=== PATIENT | female | born 1940 | race Caucasian/White ===

== ENCOUNTER 2020-09-09 11:22 | Inpatient (IN) | payer MEDICARE, BC ==
[~2020-09-09] VITALS: Ht 162.6 cm; Wt 59.9 kg
[2020-09-09 11:30] VITALS: BP 155/67
[2020-09-09] MEDS ORDERED: FENO160T8 PO (11:53)
[2020-09-09] MEDS ORDERED: METF-371 PO ×2 (11:53→12:03)
[2020-09-09] MEDS ORDERED: GLIP10TA9 PO ×3 (11:53→14:30)
[2020-09-09] MEDS ORDERED: FENO200C22 PO (12:03)
[2020-09-09] MEDS ORDERED: CLO01T PO (12:03)
[2020-09-09] MEDS ORDERED: METO-169 PO (12:03)
[2020-09-09] MEDS ORDERED: ASPI-543 PO (12:03)
[2020-09-09] MEDS ORDERED: TRAZ50TA2 PO (12:03)
[2020-09-09] MEDS ORDERED: LABETALOL HCL 5 MG/ML 4ML SYRINGE IV PRN (12:15)
[2020-09-09] MEDS ORDERED: MORPHINE SULF INJ 2 MG/ML SYRINGE 1ML IV PRN (12:15)
[2020-09-09] MEDS ORDERED: PANTOPRAZOLE 40 MG/10 ML VIAL INJ IV ONE (12:15)
[2020-09-09] MEDS ORDERED: DEXTROSE (50%) 50ML SYRG IV PRN (12:15)
[2020-09-09] MEDS ORDERED: NITROGLYCERIN 0.4 MG SL TAB SL PRN (12:15)
--- NOTE | 2020-09-09 12:53 | NUR ---
PATIENT BEING WHEELED DOWN FOR HIDA SCAN.
[2020-09-09 13:00] VITALS: BP 155/64
[2020-09-09 17:00] VITALS: BP 143/74
[2020-09-09 17:51] LABS: Basophils # (auto) 0.1 10 ^3/uL (0-0.2); Eosinophils # (auto) 0.2 10 ^3/uL (0-0.8); Monocytes # (auto) 0.5 10 ^3/uL (0-1.3)
[2020-09-09 17:52] LABS: Eosinophils % (auto) 2.7 % (0.0-7.0); Hematocrit 34.8 % (36.0-46.0); Hemoglobin 11.1 g/dL (12.2-16.2); Lymphocytes # (auto) 1.4 10 ^3/uL (0.4-5.4); Lymphocytes % (auto) 24.7 % (10.0-50.0); Mean Corpuscular Hemoglobin 25.5 pg (28.0-32.0); Mean Corpuscular Hgb Conc. 31.9 g/dL (32.0-36.0); Mean Corpuscular Volume 79.9 fL (80.0-100.0); Monocytes % (auto) 8.6 % (0.0-12.0); Neutrophils # (auto) 3.6 10 ^3/uL (1.6-8.6); Platelet Count (auto) 342 10^3/uL (140-450); Red Blood Cells 4.35 10^6/uL (4.0-5.20); White Blood Cell 5.8 10^3/uL (4.4-10.8)
[2020-09-09 18:00] LABS: INR 1.06 (0.9-1.15); Partial Thromboplastin Time 26.6 sec (23.0-31.2)
[2020-09-09] MEDS: InsuLIN REG 1unit/0.01ml Soln (100units/ml) SC SCH (18:00)
[2020-09-09 18:03] LABS: Albumin 3.7 g/dL (3.4-5.0); Calcium 9.7 mg/dL (8.5-10.1); Potassium 4.2 mmol/L (3.5-5.1)
[2020-09-09] MEDS: ACCU-CHEK COMFORT CURVE STRIP VI SCH (18:05)
[2020-09-09] MEDS: SUCRALFATE 1 GM/10 ML ORAL SUSP PO SCH ×2 (18:05→22:44)
[2020-09-09 18:06] LABS: Bilirubin, Total 0.3 mg/dL (0.2-1.0); Total Protein 6.9 g/dL (6.4-8.2)
--- NOTE | 2020-09-09 18:30 | NUR ---
INFORMED Kavon MARTINEZ OF PATIENTS INCOMPLETE HIDA SCAN. STATED THAT IS OK.
--- NOTE | 2020-09-09 18:41 | NUR ---
ALISE SWABBED COLLECTED AND WALKED UP TO LAB.
--- NOTE | 2020-09-09 19:18 | NUR ---
OPENING SHIFT NOTE: Assumed care of patient. Patient awake, alert and oriented x 3, no s/s of SOB or distress. Bed in lowest locked position with two side rails raised, call gregorio within reach, bed alarm activated and sitter at the bedside. Instructed on POC and encouraged to call for assistance, all questions and concerns addressed, patient verbalizes understanding. Will continue to monitor Q1 hr and PRN.
--- NOTE | 2020-09-09 19:32 | NUR ---
OBTAINED CONSENT FROM PATIENT IS ALERT AND ORIENTED X3 AT THIS TIME.
[2020-09-09 20:00] VITALS: BP 157/78
[2020-09-09] MEDS: PANTOPRAZOLE 40 MG/10 ML VIAL INJ IV SCH (22:44)
[2020-09-09] MEDS: traZODone HCL 50 MG TAB PO SCH (22:44)
[2020-09-10] MEDS: InsuLIN REG 1unit/0.01ml Soln (100units/ml) SC SCH ×4 (05:52→17:50)
[2020-09-10] MEDS: ACCU-CHEK COMFORT CURVE STRIP VI SCH ×4 (05:52→17:55)
[2020-09-10] MEDS: SUCRALFATE 1 GM/10 ML ORAL SUSP PO SCH ×4 (05:53→22:00)
--- NOTE | 2020-09-10 05:54 | NUR ---
Patient NPO, Carafate held for procedure.
[2020-09-10 06:19] VITALS: BP 142/65
[2020-09-10 08:00] VITALS: BP 151/76
[2020-09-10 08:30] VITALS: BP 151/76
[2020-09-10] MEDS ORDERED: diphenhdrAMINE HCL 50 MG/1 ML VL ONE (08:36)
[2020-09-10] MEDS ORDERED: SODIUM CHLORIDE LOCK 10 ML ONE (08:36)
[2020-09-10] MEDS ORDERED: LIDOCAINE VISCOUS 2% 15ML UD ONE (08:36)
[2020-09-10] MEDS ORDERED: fentaNYL CITRATE 100 MCG/2 ML VL ONE (08:36)
[2020-09-10] MEDS ORDERED: MIDAZOLAM HCL 5 MG/ML-1ML VIAL ONE (08:36)
[2020-09-10] MEDS ORDERED: NALOXONE HCL 0.4 MG/ML VIAL ONE (08:36)
[2020-09-10] MEDS ORDERED: FLUMAZENIL 0.1 MG/ML INJ 10ML MDV IV ONE (08:36)
[2020-09-10 09:00] VITALS: BP_SYST 126; BP_SYST 151; BP_DIAS 74; BP_DIAS 76
[2020-09-10] MEDS ORDERED: PANTOPRAZOLE 40 MG/10 ML VIAL INJ IV SCH (10:00)
[2020-09-10] MEDS: PANTOPRAZOLE 40 MG/10 ML VIAL INJ IV SCH ×2 (11:25→23:50)
[2020-09-10] MEDS: METOPROLOL SUCCINATE XL 50 MG TAB PO SCH (11:25)
[2020-09-10 13:00] VITALS: BP 142/66
[2020-09-10 15:22] LABS: Urine Bacteria FEW /hpf (None Seen); Urine Blood Negative /uL (Negative); Urine Mucus FEW (None Seen); Urine Specific Gravity 1.017 (1.001-1.035); Urine WBC 24 /hpf (0 - 5)
[2020-09-10] MEDS ORDERED: LORazepam 2MG/ML-1ML VIAL IV PRN (19:30)
--- NOTE | 2020-09-10 20:09 | NUR ---
Pt appears agitated and is climbing out of bed. Pt is refusing to get back into bed and yelling at staff that, "I am going home now!" There is a sitter at bedside for pt safety. Pt noted to have unsteady gait and with 2 nurses able to get pt back to bed and Ativan given per MD orders at this time. Bed is low, wheels are locked, side rails up x2. Bed alarm is set for pt safety and call light is with in reach.
[2020-09-10 22:00] VITALS: BP 147/70
[2020-09-10] MEDS: traZODone HCL 50 MG TAB PO SCH (22:00)
--- NOTE | 2020-09-10 23:00 | NUR ---
Pt unable to take po scheduled meds r/t sleeping at this time. Pt sleeping r/t recent Ativan given for anxiety and agitation.
[2020-09-11] MEDS: ACCU-CHEK COMFORT CURVE STRIP VI SCH ×3 (00:38→12:26)
--- NOTE | 2020-09-11 00:39 | NUR ---
IV site is red and when flush attempted pt c/o pain. IV dc'd with cath tip intact.
--- NOTE | 2020-09-11 04:28 | NUR ---
NEW LEFT HAND 22G IV INSERTED.
[2020-09-11 05:00] VITALS: BP 123/82
[2020-09-11] MEDS: InsuLIN REG 1unit/0.01ml Soln (100units/ml) SC SCH ×3 (06:00→12:00)
[2020-09-11] MEDS: SUCRALFATE 1 GM/10 ML ORAL SUSP PO SCH ×3 (06:04→17:00)
[2020-09-11 09:00] VITALS: BP 127/57
[2020-09-11 09:43] LABS: Basophils # (auto) 0.1 10 ^3/uL (0-0.2); Eosinophils # (auto) 0.2 10 ^3/uL (0-0.8); Monocytes # (auto) 0.4 10 ^3/uL (0-1.3); Red Cell Distribution Width 14.9 % (11.8-14.3)
[2020-09-11 09:45] LABS: Basophils % (auto) 1.9 % (0.0-2.0); Eosinophils % (auto) 3.3 % (0.0-7.0); Hematocrit 36.5 % (36.0-46.0); Hemoglobin 11.7 g/dL (12.2-16.2); Mean Corpuscular Hemoglobin 25.9 pg (28.0-32.0); Mean Corpuscular Hgb Conc. 32.2 g/dL (32.0-36.0); Mean Corpuscular Volume 80.4 fL (80.0-100.0); Monocytes % (auto) 7.1 % (0.0-12.0); Neutrophils # (auto) 4.1 10 ^3/uL (1.6-8.6); Neutrophils % (auto) 70.7 % (37.0-80.0); Platelet Count (auto) 319 10^3/uL (140-450); Red Blood Cells 4.54 10^6/uL (4.0-5.20); White Blood Cell 5.8 10^3/uL (4.4-10.8)
[2020-09-11 10:15] LABS: Calcium 9.5 mg/dL (8.5-10.1); Potassium 3.9 mmol/L (3.5-5.1)
[2020-09-11 10:17] LABS: BUN/Creatinine Ratio 16.9
[2020-09-11] MEDS: METOPROLOL SUCCINATE XL 50 MG TAB PO SCH (11:06)
[2020-09-11] MEDS: PANTOPRAZOLE 40 MG/10 ML VIAL INJ IV SCH (11:06)
--- NOTE | 2020-09-11 11:47 | NUR ---
Nutrition Assessment Est energy needs 4841-1268 kcal (25-30 kcal/kg BW 59.9kg) Est protein needs 48-60g (0.8-1g/kg BW 59.9kg) Will reassess prn. Addendum: 09/11/20 at [address] Amended: Links added.
[2020-09-11] MEDS ORDERED: cefTRIAXone 1GM/50ML D5W 50 ML IV ONE (12:15)
[2020-09-11 12:46] VITALS: BP 159/76
[2020-09-11 12:48] VITALS: BP 159/76
--- NOTE | 2020-09-11 17:29 | NUR ---
Discharge instructions given as ordered to her (Elie) with prescription script. Encourage to follow up with Primary Care Provider as instructed. All questions and concerns addressed. Patient verbalized understanding. IV removed with catheter intact, pressure dressing applied. Telemetry unit removed and returned to ICU. Patient taken to vehicle via wheelchair with all personal belongings, accompanied by staff and family member. No distress noted at time of departure.
[2020-09-12] MEDS ORDERED: cefTRIAXone 1GM/50ML D5W 50 ML IV SCH (09:00)
== END 2020-09-11 17:15 | disposition home or self-care (01) | DRG 378 ==
LOC: TELE-CENTR 11:22
PROVIDERS: ADMIT Internal Medicine; ATTEND Internal Medicine Pulmonary Disease
PROC: 0DB68ZX Excision of Stomach, Via Natural or Artificial Opening Endoscopic, Diagnostic (ICD-10-PCS; principal; 2020-09-10 09:34)
DX: K29.71 Gastritis, unspecified, with bleeding (principal); N39.0 Urinary tract infection, site not specified; K29.81 Duodenitis with bleeding; I10 Essential (primary) hypertension; I25.10 Atherosclerotic heart disease of native coronary artery without angina pectoris; E78.5 Hyperlipidemia, unspecified; E11.9 Type 2 diabetes mellitus without complications; Z79.84 Long term (current) use of oral hypoglycemic drugs; Z79.82 Long term (current) use of aspirin; R63.4 Abnormal weight loss; F17.200 Nicotine dependence, unspecified, uncomplicated; K57.30 Diverticulosis of large intestine without perforation or abscess without bleeding; Z20.828 Contact with and (suspected) exposure to other viral communicable diseases
CPT/HCPCS: 36415; 43239; 71045; 74176; 80048; 80053; 81001; 82962; 83036; 85025; 85610; 85730; 93005; 93306; C9113; G0378; J0696; J1815; J2250

== ENCOUNTER 2020-11-01 14:19 | Emergency (ER) | payer MEDICARE, BC ==
[~2020-11-01] VITALS: Ht 165.1 cm; Wt 56.7 kg
[~2020-11-01 14:19] MED LIST: ASPI-543 PO; CLO01T PO; FENO160T8 PO; FENO200C22 PO; GLIP10TA9 PO; METF-371 PO; METO-169 PO; TRAZ50TA2 PO
[2020-11-01 15:51] LABS: Basophils # (auto) 0.1 10 ^3/uL (0-0.2); Basophils % (auto) 2.1 % (0.0-2.0); Eosinophils # (auto) 0.2 10 ^3/uL (0-0.8); Hemoglobin 10.2 g/dL (12.2-16.2); Monocytes # (auto) 0.6 10 ^3/uL (0-1.3)
[2020-11-01 15:53] LABS: Eosinophils % (auto) 3.3 % (0.0-7.0); Hematocrit 31.3 % (36.0-46.0); Lymphocytes % (auto) 14.2 % (10.0-50.0); Mean Corpuscular Hemoglobin 26.4 pg (28.0-32.0); Mean Corpuscular Hgb Conc. 32.7 g/dL (32.0-36.0); Mean Corpuscular Volume 80.9 fL (80.0-100.0); Monocytes % (auto) 8.8 % (0.0-12.0); Neutrophils # (auto) 4.9 10 ^3/uL (1.6-8.6); Neutrophils % (auto) 71.6 % (37.0-80.0); Platelet Count (auto) 369 10^3/uL (140-450); Red Blood Cells 3.87 10^6/uL (4.0-5.20); Red Cell Distribution Width 14.6 % (11.8-14.3); White Blood Cell 6.9 10^3/uL (4.4-10.8)
[2020-11-01 16:05] LABS: Albumin 3.5 g/dL (3.4-5.0); Anion Gap 7 (5-15); BUN/Creatinine Ratio 10.4; Blood Urea Nitrogen 8 mg/dL (7-18); Calcium 8.9 mg/dL (8.5-10.1); Carbon Dioxide 23 mmol/L (21-32); Chloride 107 mmol/L (98-107); GFR African American 93 mL/min; GFR Non-African American 77 mL/min; Glucose 149 mg/dL (74-106); Sodium 137 mmol/L (136-145)
[2020-11-01 16:10] LABS: Alanine Aminotransferase 17 U/L (13-56); Alkaline Phosphatase 45 U/L (45-117); Aspartate Aminotransferase 19 U/L (15-37); Bilirubin, Total 0.2 mg/dL (0.2-1.0); Total Protein 7.1 g/dL (6.4-8.2)
[2020-11-01] MEDS ORDERED: ACETAMINOPHEN 325 MG TAB PO ONE (20:00)
[2020-11-01 20:35] VITALS: BP 127/89
== END 2020-11-01 20:42 | disposition home or self-care (01) ==
LOC: ER 14:19
DX: S01.01XA Laceration without foreign body of scalp, initial encounter (principal); E11.9 Type 2 diabetes mellitus without complications; E78.5 Hyperlipidemia, unspecified; I10 Essential (primary) hypertension; Z86.73 Personal history of transient ischemic attack (TIA), and cerebral infarction without residual deficits; W18.39XA Other fall on same level, initial encounter; Y93.89 Activity, other specified; Y92.89 Other specified places as the place of occurrence of the external cause; Y99.8 Other external cause status
CPT/HCPCS: 12002; 36415; 70450; 80053; 84484; 85025; 93005